=== PATIENT | female | born 1955 | race Caucasian/White ===

== ENCOUNTER 2020-06-09 08:32 | Outpatient (CLI) | payer OTHER, SELFPAY | END 2020-06-09 08:33 | disposition home or self-care (01) | LOC: ANHCOVIDVC 08:32 | PROVIDERS: PCP Student in an Organized Health Care Education/Training Program | DX: Z23 Encounter for immunization (principal) | CPT/HCPCS: 0001A; 91300 ==

== ENCOUNTER 2020-06-30 08:28 | Outpatient (CLI) | payer OTHER, SELFPAY | END 2020-06-30 08:29 | disposition home or self-care (01) | LOC: ANHCOVIDVC 08:28 | PROVIDERS: PCP Student in an Organized Health Care Education/Training Program | DX: Z23 Encounter for immunization (principal) | CPT/HCPCS: 0002A; 91300 ==

== ENCOUNTER 2021-05-19 01:25 | Day surgery (SDC) | payer MEDICARE, SELFPAY ==
[2021-05-12 14:38] VITALS: BMI 22.2
--- NOTE | 2021-05-12 15:00 | PC.NURSE ---
Report to the Outpatient Waiting Room, entrance under the green pavilion located off [facility], at time __7:00AM on date _05/19/21 . OR Time: ___9:00AM . - You will be asked a series of questions to screen for COVID 19 for your protection. - A mask is required within the hospital. - No visitors are allowed at this time. Preoperative COVID Testing Requirements: No COVID Test needed if: (proof is required; if not received patient will have Rapid Test prior to entry) - Patient has received COVID Vaccine at least 14 days prior to procedure date or - Patient has positive COVID test result within last 90 days of surgery date. COVID Test needed if above criteria is not met If not COVID vaccinated a COVID test must be conducted within 72 hours of surgery and patient is asked to isolate self from time of testing until procedure. You will go to the [employer] [facility] Site for your COVID testing. The [employer] [facility] is located at the corner of [address] [facility]. You will only be called if COVID results are positive and your surgeon may reschedule your elective surgery date. Patients may have clear liquids (water, carbonated beverages, clear teas, apple juice) until 3 hours prior to surgery with a maximum of 20 ounces. - No food from midnight until time of surgery - Infants may have breast milk until 4 hours before surgery, infant formula 6 hours prior to surgery. - Children will be allowed to drink immediately following surgery. If applicable, please bring a bottle or sippy cup to assist with drinking. Juice, water, soda, and popsicles are readily available. For infants on formula, please bring formula the day of surgery. Pacifiers are allowed. Take the following medications with a SIP of water the morning of surgery: ____LEVOTHYROXINE Medications to discontinue per physician ALL VITAMINS/SUPPLEMENTS 3 DAYS PRE-OP Date to take last dose____2/8/22 Please no make-up, nail tajik, hairspray, perfume, deodorant, or body powder the day of surgery. No jewelry (including any body piercings) or valuables the day of surgery, leave them at home. Please take a shower or bath the night before, or the morning of, surgery with an antibacterial soap. Wear comfortable, loose fitting clothing. Children are encouraged to wear pajamas. - Jewelry must be removed prior to entering the operating room. Rings and piercings that are not removed may be cut off. - The hospital will not accept responsibility for valuables. - Please leave all valuables, including medications, at home the day of surgery. If you are going home after surgery, a licensed corrugated fastener driver must drive you home. - NO public transportation without another adult. - We recommend that an adult stay with you for 24 hours following discharge. - We also recommend that you do not drive, make important decision, drink alcoholic beverages, or take any drugs that were not prescribed by your health care provider for at least 24 hours after your discharge time. For Pediatric surgeries, we recommend two adults accompany the child home (only one inside the building at this time). Follow any additional instructions given to you from your surgeon. Telephone instructions given to ___PATIENT and asked if any additional questions and then verbalized understanding. Patient advised to call surgeon office or pre surgery nurse liaison [phone] if any additional questions.
[2021-05-19] VITALS (9 sets, daily range): BP systolic 100–148; BP diastolic 57–92; PULSE 93–112; RESP 10–20; TEMP 36.6–36.8; O2SAT 99–100; BMI 22.1
--- NOTE | ~2021-05-19 | XR_ITS ---
EXAMINATION: XR surgery orthopedic DATE: 05/19/2021 10:58 INDICATION: Right foot arthrodesis TECHNIQUE: Dorsal plantar and lateral fluoroscopic images of the right forefoot were obtained during procedure performed by Dr. Thompson. Radiologist was not present for the imaging or procedure. The am ount of fluoroscopy time used during this procedure was 0.2 minutes. COMPARISON: None. FINDINGS: First metatarsophalangeal arthrodesis with dorsal plate and screw fixation. There is suggestion of an associated bunionectomy with osteotomy at the medial head of the first metatarsal. Shortening osteot kamryn with screw fixation at the neck of the second metatarsal. Alignment is near-anatomic. No fracture s identified. Unfused joint spaces are unremarkable. Expected small amount of likely postoperative so ft tissue gas about the head of the second metatarsal. IMPRESSION: 1. Fluoroscopy utilized during orthopedic procedure at the right forefoot as detailed above. See proc edure note for further detail. Reviewed, dictated and finalized at location A. CAGER IMPRESSION: 1. Fluoroscopy utilized during orthopedic procedure at the right forefoot as de tailed above. See procedure note for further detail.
--- NOTE | 2021-05-19 07:12 | WPDHPUPDATE1 ---
History and Physical Update Update Date/Time: 05/19/21 07:12 History and Physical has been reviewed, including an updated exam of the patient. There are NO changes in the patient's condition. Risks, benefits, and alternatives have been discussed and questions answered. Patient agrees to proceed with procedure.
[2021-05-19] MEDS: LACTATED RINGERS 1,000 ML 30 ML IV CONT (07:51)
--- NOTE | 2021-05-19 09:06 | P.PNAN_ITS ---
Anes - Initial Pre Proc Eval Procedure: Operation Date: 05/19/21 09:00 Proposed Procedures p Arthrodesis First Metatarsal Phalangeal Joint Right Foot, Robin Shortening Second Metatarsal Osteotomy Right Foot, - Rajiv Thompson JR, MD s Excision Second Intermetatarsal Space Neuroma Right Foot - Rajiv Thompson JR, MD Date/Time: 05/19/21 09:06 Surgeon: Rajiv Thompson JR, MD Pre Op Diagnosis: arthritic bunion rt foot, metatarsalgia 2nd MPG rt Patient Data Age: 66 Gender: F Height: 1.6 m Weight: 56.7 kg Last Vital Signs Temp 36.8 C 05/19/21 07:53 Pulse 110 H 05/19/21 07:53 Resp 20 05/19/21 07:53 BP 143/80 H 05/19/21 07:53 Pulse Ox 100 05/19/21 07:53 Allergies Allergy/AdvReac Type Severity Reaction Status Date / Time metronidazole Allergy Intermediate SEVERE N/V Verified 05/19/21 07:39 Home Medications Medication Instructions Recorded Confirmed Type alprazolam 0.5 mg PO HS PRN 05/12/21 05/19/21 History cholecalciferol (vitamin D3) 50 mcg PO DAILY 05/12/21 05/19/21 History levothyroxine [Euthyrox] 75 mcg PO QAM 05/12/21 05/19/21 History Patient hx anesthesia problems: none Family hx anesthesia problems: none Results Review: All pre-operative results and documents have been reviewed as part of the pre-operative evaluation. [facility] Past Medical History Medical History (Updated 05/19/21 @ 09:06 by Terence Sanchez DO) History of Graves' disease Hyperlipidemia Hypothyroidism Tachycardia can get as high as 130 asymptomatically. Has gone into true SVT >150 twice. No interventions Surgical History Surgical History (Updated 05/19/21 @ 09:01 by Terence Sanchez DO) History of cervical spinal surgery History of cholecystectomy History of hysterectomy Family History Family History (Updated 01/09/18 @ 10:01 by DOCTOR UNKNOWN) Other Hypertension Social History Social History Smoking status: Never smoker Second hand tobacco smoke exposure: No Alcohol intake: never Substance use: never Living arrangements: alone Spiritual care concerns: No Anes - Eval Final PreProcedure Day of Procedure 05/19/21 09:06 Patient weight: normal Heart: regular rate and rhythm Lungs: clear to auscultation and normal air movement Airway: Mallampati scale class II Neurological: alert and oriented Last oral intake: >/= 8 hours ASA classification: III Emergent: no Anesthetic plan: proceed Anesthesia type and monitoring: general LMA and standard monitoring Results Review: All pre-operative results and documents have been reviewed as part of the pre-operative evaluation. Informed Consent: The patient's anesthetic plan and its attendant risks and benefits were discussed with the patient/family/POA. Questions were solicited and answers provided to the satisfaction of the patient/family/POA.
--- NOTE | 2021-05-19 09:22 | SUR.PREOP ---
0900; DR GAUTHIER NOTIFIED OF PT'S HEART RATE OVER 100
[2021-05-19] MEDS: ceFAZolin 2 GM/D5W 50 ML 2 GM/50 ML BAG IVPB (09:44)
--- NOTE | 2021-05-19 11:15 | W.PM.PROC2 ---
Procedure Note - Detailed Date of Procedure 05/19/21 Pre-op Diagnosis 1. Arthritic bunion right foot 2. Metatarsalgia 2nd metatarsal phalangeal joint right foot 3. 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 Arthrodesis of the first metatarsal phalangeal joint right foot 2. Robin shortening 2nd metatarsal osteotomy right foot 3. Neuroma excision 2nd intermetatarsal space right foot Surgeon Rajiv Thompson JR, VICKY Anesthesia general and regional Indications Pain to the right forefoot Description of Procedure PROCEDURE IN DETAIL: Under mild sedation, the patient was brought into the operating room, placed on the operating table in supine position. A pneumatic ankle tourniquet was placed about the patient's ipsilateral ankle. Following general LMA, and a popliteal fossa block. The foot was then scrubbed, prepped, and draped in the usual aseptic manner. An Esmarch bandage was then used to exsanguinate the patient's foot and the pneumatic ankle tourniquet was then inflated. Surgery began in the following manner: Attention was directed to the dorsal aspect of the 1st metatarsophalangeal joint where there was a large subcutaneous prominence noted along the dorsomedial aspect of the joint. The incision was made starting along the central shaft of the 1st metatarsal and extending just proximal to the interphalangeal joint of the hallux. The incision was continued deep down through the subcutaneous tissues using sharp and blunt dissection. All bleeders were cauterized as necessary. At this point, the dissection was continued down to the level of the periosteum and capsular structures overlying the 1st metatarsophalangeal joint. A full length periosteum and capsular incision was made just medial to the extensor hallucis longus tendon. The periosteum and capsular structures were freed from the base of the proximal phalanx as well as the distal 1st metatarsal. At this point, the 1st metatarsophalangeal joint was identified. There was almost complete loss of articular cartilage to the head of the 1st metatarsal as well as the base of the proximal phalanx. There was significant broadening and hypertrophy of the 1st metatarsophalangeal joint. Utilizing a sagittal bone saw, the hypertrophied 1st metatarsal was resected dorsally, medially, and laterally. A power bur was used to make sure that there were no rough edges and also to further debride the hypertrophic 1st metatarsal. Next, a rongeur was used to resect all hypertrophic base of the proximal phalanx. At this point, the reamer system for the [employer]hip CrossCHECK system was used to denude the degenerative cartilage from the head of the 1st metatarsal as well as the base of the proximal phalanx. The cartilage and subchondral bone were fully debrided utilizing the reamer system until healthy bleeding bone was noted. Next, a 2-0 drill bit was used to further fenestrate the head of the 1st metatarsal as well as the base of the proximal phalanx in order to allow fusion across the 1st metatarsophalangeal joint. Next, a 0.045 inch K-wire was driven from the medial aspect of the base of the proximal phalanx into the head of the 1st metatarsal in order to serve as temporary fixation. A large steel plate was used to make sure that the hallux was in a rectus position both in the sagittal plane as well as the frontal and transverse plane. Excellent position of the hallux was noted. Next, a CrossCHECK plate was placed atop the 1st metatarsophalangeal joint held in position with T[place] wires. Utilizing standard principles and techniques, the 2 distal drill holes were drilled and two 2.7mm mm fully-threaded locking screws were driven from dorsal to plantar holding the distal aspect of the plate intact. At this point, a 3.5mm lag screw was driven from dorsal distal to proximal plantar across the 1st metatarsophalangeal joint through the plate system with e
[2021-05-19] MEDS: oxyCODONE HCL (*CRX) 5 MG TAB IR PO (13:17)
--- NOTE | 2021-05-19 14:24 | WPDANESPNB ---
Anes - Peripheral Nerve Block Date/Time: 05/19/21 14:24 I have discussed with the patient/family/POA the placement of a peripheral nerve block for post-operative pain management, including associated risks, benefits, complications, and side effects. Alternative methods of post-operative analgesia were detailed. Questions were solicited and answers provided to the satisfaction of the patient/family/POA. Time-Out: A pre-procedural Time-Out was completed immediately before starting the procedure and confirmed: Patient Identification, Site, Procedure, Patient Position and the Availability of Requisite Equipment. Clinical Indications: Acute post-operative pain management requested by the operative surgeon. Nerve Block Insertion Note Anes-nerve block: posterior fossa sciatic right and other (saphenous) Patient position: supine Needle: 22 gauge, stimulating, insulated echogenic needle. Needle length: 80 mm Technique: nerve stimulation lost at (mA) (0.35) Injectate: bupivacaine 0.5% with epi 5 mcg/ml (24cc sciatic, 8cc saphenous) Observations: tolerated well Complications: none Procedure start time:: 929 Procedure end time:: 935
== END 2021-05-19 13:45 | disposition home or self-care (01) ==
PROVIDERS: PCP Student in an Organized Health Care Education/Training Program; Visit Provider Podiatrist Foot & Ankle Surgery
PROC: (CPT 28750; principal; 2021-05-19 09:00)
PROC: (CPT 28080; 2021-05-19 09:00)
DX: M21.611 Bunion of right foot (principal); G57.61 Lesion of plantar nerve, right lower limb; G89.18 Other acute postprocedural pain; E78.5 Hyperlipidemia, unspecified; E03.9 Hypothyroidism, unspecified
CPT/HCPCS: 28080; 28308; 28755; 64445; 64450; 88304; A9270; C1713; J0690; J1100; J1940; J2001; J2250; J2405; J2704; J3010; J7120

== ENCOUNTER 2021-11-22 23:17 | Emergency (ER) | payer MEDICARE, SELFPAY ==
--- NOTE | ~2021-11-22 | XR_ITS ---
EXAMINATION: XR shoulder LT min 2V INDICATION: Left shoulder pain, initial encounter TECHNIQUE: Three views of the left shoulder are submitted. COMPARISON: None FINDINGS: There is an acute, traumatic, closed, transverse fracture in the proximal shaft of the left humerus. Glenohumeral alignment appears normal. The acromioclavicular joint is unremarkable. Surgica l changes are noted in the cervical spine. No additional fracture is identified. Soft tissues are unr emarkable. IMPRESSION: 1. Acute fracture in the proximal shaft of the left humerus. Reviewed, dictated and finalized at location A.
--- NOTE | ~2021-11-22 | XR_ITS ---
EXAMINATION: XR elbow LT min 3V DATE: 11/23/2021 00:24 INDICATION: Left elbow pain TECHNIQUE: Anteroposterior, two oblique and lateral views of the left elbow were obtained. COMPARISON: None. FINDINGS: Alignment is normal. No fracture or joint effusion. There is mild osteoarthritis of the elb ow. Soft tissues are unremarkable. IMPRESSION: 1. No acute osseous abnormality. Reviewed, dictated and finalized at location A.
--- NOTE | ~2021-11-22 | CT_ITS ---
EXAMINATION: CT diagnostic chest wo con DATE: 11/23/2021 00:07 INDICATION: Left chest pain TECHNIQUE: Computed tomography (CT) of the chest was performed without intravenous contrast. The dose -length product (DLP) was 262.37 mGy-cm. Automated exposure control and iterative reconstruction tech [employer] were employed. COMPARISON: 05/13/2012 FINDINGS: There are changes of anterior fusion in the lower cervical spine. There is a chronic nodule of the lingula without significant change. Mild dependent atelectasis is noted. No pleural effusion or pneumothorax. No pathologically enlarged thoracic lymph nodes are identified. The heart size is no rmal. Calcified coronary artery atherosclerosis is noted. The gallbladder is surgically absent. There is an acute fracture in the proximal shaft left humerus. Mild thoracic spondylosis is noted. IMPRESSION: 1. No CT correlate for the patient's symptoms. 2. Acute fracture in the proximal shaft of the left humerus. Reviewed, dictated and finalized at location A.
--- NOTE | ~2021-11-22 | CT_ITS ---
EXAMINATION: CT brain wo con, CT facial & cervical spine wo DATE: 11/23/2021 00:04 INDICATION: Fall with head injury and swelling in the left malar region. TECHNIQUE: 1. Computed tomography (CT) of the head was performed without intravenous contrast. Sagittal and juan nal reconstructions were performed. The mA was adjusted according to patient size. Iterative reconstr uction technique was employed. The dose-length product was 605.33 mGy-cm. 2. CT of the maxillofacial bones and cervical spine was performed without intravenous contrast. Sagit sirisha and coronal reconstructions were performed. The dose-length product was 204.36 mGy-cm. COMPARISON: Head CT dated 02/04/2010, brain MR dated 01/17/2010 FINDINGS: Head and maxillofacial bones: No calvarial fracture. No acute intracranial hemorrhage, acute infarction or abnormal extra axial flu id collection. Ventricles are normal and symmetric. No mass/mass effect. The orbitsare normal. The ma stoid air cells, middle ear cavities and paranasal sinuses are clear. Temporomandibular joints are no rmal alignment with osteoarthritis, mild on the right and moderate on the left. No maxillofacial frac tures. Left malar contusion with stranding in the subcutaneous fat surrounding a subcentimeter hemato ma. Cervical spine: Alignment is normal. C5-C6 anterior spinal fusion with anterior plate and screw fixation. Unfused citlali tebral body heights are normal. No fracture. Mild disc height loss at C4-C5 and C6-C7. Severe left-si ded uncovertebral osteoarthritis at C6-C7 contributing to mild to moderate neural foraminal stenosis at this level. Moderate to severe facet osteoarthritis on the right at C4-C5 contributing to mild elvira ral foraminal stenosis at this level. There is additional mild scattered uncovertebral and facet oste oarthritis throughout the remainder of the cervical spine. Mild hypertrophic change posterior margin of the fused C5-C6 disc space resulting in minimal central canal stenosis at this level. No other shivam tral canal stenosis. Mild biapical pleural-parenchymal scarring. Small calcified right upper lobe nod ule consistent with old granulomatous disease. IMPRESSION: 1. No acute intracranial process. 2. Small left malar subcutaneous hematoma. No maxillofacial fractures. 3. Mild cervical spondylosis with instrumented C5-C6 anterior spinal fusion. No acute osseous abnorma lity. Reviewed, dictated and finalized at location A. IMPRESSION: 1. No acute intracranial process. 2. Small left malar subcutaneous hematoma. No maxillofacial fractures. 3. Mild cervical spondylosis with instrumented C5-C6 anterior spinal fusion. No acute osseous abnormality.
[2021-11-22 23:21] VITALS: BP 151/106; PULSE 94; RESP 24; TEMP 36.9; O2SAT 99
[2021-11-22 23:34] VITALS: PULSE 93
[2021-11-22 23:48] LABS: Basophils Percent Auto 0.4 % (0.2-1.2); Eosinophils Absolute Auto 0.1 K/mm3 (0-0.3); Eosinophils Percent Auto 1.4 % (0-4.4); Hematocrit 41.9 % (37.0-47.0); Hemoglobin 13.5 g/dL (12.0-15.0); Immature Granulocyte Absolute 0.04 K/mm3 (0.00-0.031); Immature Granulocyte Percent A 0.5 % (0-0.5); Lymphocytes Absolute Auto 2.89 K/mm3 (0.9-3.2); Mean Corpuscular HGB Conc 32.2 g/dl (32-36); Mean Corpuscular Volume 96.1 fl (80-100); Monocytes Absolute Auto 0.9 K/mm3 (0.1-0.6); Monocytes Percent Auto 11.9 % (2.6-8.5); Neutrophils Absolute Auto 3.8 K/mm3 (1.3-6.7); Neutrophils Percent Auto 48.8 % (45.5-73.1); Platelet Count Result 263 k/mm3 (150-375); Red Blood Count 4.36 M/mm3 (4.2-5.4); Red Cell Distribution Width 12.9 % (11.5-14.5); White Blood Count 7.8 K/mm3 (4.5-10.0)
[2021-11-23] VITALS (12 sets, daily range): BP systolic 117–148; BP diastolic 70–91; PULSE 99–108; RESP 12–23; O2SAT 95–100
[2021-11-23 00:09] LABS: INR 0.9; Prothrombin Time 11.8 Seconds (11.1-14.7)
[2021-11-23 00:10] LABS: Partial Thromboplastin Time 25.3 SECONDS (22.3-36.8)
[2021-11-23 00:22] LABS: Alanine Aminotransferase 37 U/L (6-35); Albumin Level 4.8 g/dL (3.5-5.1); Alkaline Phosphatase 80 U/L (38-126); Anion Gap 12 mmol/L (8-16); Aspartate Amino Transferase 42 U/L (14-36); Bilirubin,Total 0.6 mg/dL (0.2-1.3); Blood Urea Nitrogen 18 mg/dL (7-17); Calcium 9.8 mg/dL (8.4-10.2); Carbon Dioxide 25 mmol/L (22-30); Chloride 101 mmol/L (98-107); Estimated CRCL calculation 55 ml/min; Estimated Glomerular Filt Rate > 60; Glucose 133 mg/dL (65-110); Potassium 4.2 mmol/L (3.4-5.0); Sodium 138 mmol/L (137-145)
--- NOTE | 2021-11-23 00:28 | ED.FALL ---
HPI - Fall General Chief Complaint: Trauma Stated Complaint: fall down stairs x12 Time Seen by Provider: 11/22/21 23:31 Source: RN notes reviewed History of Present Illness HPI Narrative: Patient presents emergency department from home for falling down the stairs. Patient states that she was going to try to find a light switch and was leaning to reach for when she fell and went down approximately 12 stairs. Patient notes pain in her left shoulder as well as in the left side of her face and her head. States she does not believe she lost consciousness. States that she has pain any time she tries to move her left arm she also notes pain across her upper chest she denies any abdominal pain she denies any back pain she notes mild abrasions to the knees but denies any pain in the lower extremities or the right arm states she not taking thing for pain Related Data Home Medications Medication Instructions Recorded Confirmed alprazolam 0.5 mg tablet 0.5 mg PO HS PRN Insomnia 05/12/21 05/19/21 cholecalciferol (vitamin D3) 50 50 mcg PO DAILY 05/12/21 05/19/21 mcg (2,000 unit) capsule levothyroxine 75 mcg tablet 75 mcg PO QAM 05/12/21 05/19/21 (Euthyrox) Allergies Allergy/AdvReac Type Severity Reaction Status Date / Time metronidazole Allergy Intermediate SEVERE N/V Verified 11/23/21 00:46 Fffohch-NTX-PnE Reductase Allergy Muscle Pain Verified 11/23/21 00:46 Inhibitor Review of Systems Review of Systems: Gen.: Denies fevers or chills Eyes: Denies eye pain or visual change ENT: Denies congestion Respiratory: Denies shortness of breath or cough CV: Reports chest pain GI: Denies abdominal pain nausea, emesis or diarrhea denies incontinence Musculoskeletal: D see HPI Neuro: Reports headache Skin: Denies rash Except as documented, all other systems reviewed and negative [facility] Past Medical History Medical History History of Graves' disease Hyperlipidemia Hypothyroidism Tachycardia can get as high as 130 asymptomatically. Has gone into true SVT >150 twice. No interventions Surgical History Surgical History (Updated 05/19/21 @ 09:01 by Terence Sanchez DO) History of cervical spinal surgery History of cholecystectomy History of hysterectomy Family History Family History (Updated 01/09/18 @ 10:01 by DOCTOR UNKNOWN) Other Hypertension Social History Social History Smoking status: Never smoker Second hand tobacco smoke exposure: No Alcohol intake: never Substance use: never Gender identity (if verbalized by the patient): Female Sexual Orientation (if Verbalized by the Patient): Straight or Heterosexual Spiritual care concerns: No Exam Narrative: APPEARANCE: Well appearing, no apparent distress, well-nourished. HEENT: normocephalic swelling ecchymosis over the left cheek tenderness to palpation full range of motion of the jaw nares patent with no epistaxis EYES: PERRL NECK: Supple. No midline tenderness to palpation. Full range of motion without pain RESPIRATORY: No respiratory distress. Clear to auscultation bilaterally CARDIOVASCULAR: Regular rate and rhythm without murmurs rubs or gallops. Chest: Tender palpation across the bilateral anterior chest wall no swelling or ecchymosis ABDOMINAL: Soft, nontender, nondistended, no rebound or guarding MUSCULOSKELETAl: No tenderness to palpation of right upper and lower extremities. No clubbing cyanosis or edema tender palpation over left shoulder diffusely with pain with any movement left shoulder tenderness palpation of the left elbow no tenderness of the left wrist radial pulse 2+ neurovascular intact Back: No midline thoracic or lumbar tenderness to palpation NEURO: Awake and alert ?3. Follows commands. Speech normal. No focal deficits. SKIN:: Warm, dry. Normal Color Course Course Emergency Course: Discussed with Dr. Herrera
[2021-11-23] MEDS: MORPHINE SULFATE (*CRX) 4 MG/ML INJ IV PUSH (00:46)
--- NOTE | 2021-11-23 01:30 | PC.NURSE ---
Shoulder immobilizer applied at this time. PT tolerated application, friend and pt verbalized understanding after education on ortho device. Pt ambulated after ortho device applied without difficulty at this time.
== END 2021-11-23 01:56 | disposition home or self-care (01) ==
PROVIDERS: Emergency Provider Emergency Medicine; PCP Student in an Organized Health Care Education/Training Program
DX: S42.322A Displaced transverse fracture of shaft of humerus, left arm, initial encounter for closed fracture (principal); S52.042A Displaced fracture of coronoid process of left ulna, initial encounter for closed fracture; S00.83XA Contusion of other part of head, initial encounter; E78.5 Hyperlipidemia, unspecified; E05.00 Thyrotoxicosis with diffuse goiter without thyrotoxic crisis or storm; E03.9 Hypothyroidism, unspecified; Z90.710 Acquired absence of both cervix and uterus; M47.812 Spondylosis without myelopathy or radiculopathy, cervical region; W10.9XXA Fall (on) (from) unspecified stairs and steps, initial encounter
CPT/HCPCS: 36415; 70450; 70486; 71250; 72125; 73030; 73080; 80053; 85025; 85610; 85730; 96365; 96375; 99284; J0131; J2270